=== PATIENT | male | born 1950 | race Caucasian/White ===

== ENCOUNTER → 2018-04-17 | Day surgery (SDC) | payer MEDICARE ==
[2018-04-13 08:29] VITALS: BMI 25.8
[~2018-04-17] MED LIST: ALPRAZolam 0.25 MG TAB PO PRN; ALPRAZolam 0.5 MG TAB PO PRN; ASPIRIN 325 MG TAB PO ONE; ATORVASTATIN 80 MG TAB PO ONE; HEPARIN SODIUM 1,000 UN/ML (10ML VL) IV ONE; HEPARIN SODIUM 1,000 UN/ML (10ML VL) ONE; IOPAMIDOL-370 100ML BTL INJ ONE; IOPAMIDOL-370 50ML BTL INJ ONE; LIDOCAINE 1% INJ 10MG/ML (20 ML MDV) ONE; LIDOCAINE 1% INJ 10MG/ML (20 ML MDV) SQ ONE; MIDAZOLAM 2 MG/2 ML VIAL ONE; NITROGLYCERIN SL TABS 0.4 MG TAB SUBLINGUAL PRN; RX INFO: IV CONTRAST WAS GIVEN 1 EACH MISC MISCELLANE PRN; SODIUM CHLORIDE 0.9% 1,000 ML IV SCH; SODIUM CHLORIDE 0.9% 1,000 ML in EMPTY BAG 1 BAG IV ONE; VERAPAMIL 2.5 MG/ML 2 ML AMP ONE; VERAPAMIL SYRINGE (5 MG/10 ML) IV ONE; diphenhydrAMINE 25 MG CAP PO ONE
[2018-04-17 10:12] VITALS: TEMP 98.2
[2018-04-17 10:47] LABS: Basophils % (A) 0 %; Eosinophils % (A) 1 %; HCT 41.3 % (39.0-53.0); HGB 14.1 gm/dL (13.0-17.5); Lymphocytes # (A) 0.9 k/uL (1.0-4.8); Lymphocytes % (A) 11 %; MCH 31.2 pg (25.0-35.0); MCHC 34.2 g/dL (31.0-37.0); MCV 91.2 fL (80.0-100.0); Mean Platelet Volume 8.6; Monocytes # (A) 0.3 k/uL (0-1.0); Monocytes % (A) 3 %; Neutrophils # (A) 7.5 k/uL (1.3-7.7); Neutrophils % (A) 85 %; Platelet Count 218 k/uL (150-450); RBC 4.53 m/uL (4.30-5.90); RDW 12.8 % (11.5-15.5); WBC 8.8 k/uL (3.8-10.6)
[2018-04-17 10:51] LABS: Anion Gap 8 mmol/L; Blood Urea Nitrogen 19 mg/dL (9-20); Calcium 9.8 mg/dL (8.4-10.2); Carbon Dioxide 25 mmol/L (22-30); Chloride 106 mmol/L (98-107); Glucose 107 mg/dL (74-99); Sodium 139 mmol/L (137-145)
[2018-04-17] MEDS: MIDAZOLAM 2 MG/2 ML VIAL IV ONE ×2 (11:54→12:03)
[2018-04-17 13:08] VITALS: RESP 16
--- NOTE | 2018-04-17 15:06 | CC ---
CARDIAC CATHETERIZATION REPORT DATE OF SERVICE: 04/17/2018 PROCEDURE: Left heart catheterization, coronary angiography and left ventriculography. PERFORMED BY: Dr. Nereida Parish. Moderate conscious sedation time was 29 minutes. Patient was administered Versed and also Benadryl. His oxygen saturation, EKG and hemodynamics were monitored closely. CLINICAL INFORMATION: Mr. Naveen Richardson is a 67-year-old gentleman with a known history of CAD who has multivessel PCI. He underwent stenting of circumflex in 2000 and following an acute inferior AL, underwent stenting of a totally occluded RCA in April 2005. Cardiac cath in 2006 revealed that his vessels were patent with noncritical disease. Because of an abnormal stress test with a large area of fixed defect with concomitant ischemia, he was advised coronary angiography after due discussion regarding risks, benefits, and options. This patient is fairly active and he does have some exertional chest tightness as well. PROCEDURE NOTE: Under local anesthesia and strict aseptic precautions, a 6-Yakut introducer was placed in the right femoral artery. Using a JL3.5 and JR4.0 catheters, I performed coronary angiography and a pigtail catheter was used to perform an LV-gram. The catheter and sheath were taken out and a TR band applied as per protocol. The patient was sent to the room in a stable condition. Saturation of the fingers of the right hand was 96%. CARDIAC CATHETERIZATION FINDINGS: The left ventricular end-diastolic pressure was 12 mmHg without any gradient across the aortic valve. CORONARY ANGIOGRAPHY FINDINGS: RIGHT CORONARY ARTERY: Technically, a very dominant vessel that has about a 35%-40% lesion in the midportion between the 2 stented areas. The stented areas are widely patent and beyond that, it bifurcates into a large PDA and PLV, both of which supply a sizable amount of myocardium. No significant disease in the RCA. The 35%-40% mid lesion between the stented segments is very similar to the previous study from 2006. LEFT MAIN CORONARY ARTERY: A long patent disease-free vessel that bifurcates into LAD and circumflex. LEFT ANTERIOR DESCENDING CORONARY ARTERY: Good caliber vessel extends along the anterior wall, gives off 2 good-sized diagonal branches. There is a lot of tortuosity in the proximal 1/3. At the junction of proximal and middle 1/3, there is a very eccentric 45%-50% lesion which I looked at in multiple projections and compared with the one from the previous in 2007 angiogram. There is no significant change. This is about a 45%-50% lesion, unchanged in a calcified area. Angiographically, it looks exactly the same were maybe a tad better when compared to 2007. Beyond this, the caliber of the vessel is good and supplies a sizable amount of myocardium in the LAD distribution. LEFT POSTERIOR CIRCUMFLEX CORONARY ARTERY: Technically, a nondominant vessel that has previous stenting in the midportion. The stented area has about a 40% narrowing with brisk flow. I do not see any significant lesion. Compared to the study from 2007, there is mild increase in the narrowing but overall it is not significant. It gives off a single obtuse marginal that runs laterally and divides into 2 branches, supplies a fair amount of myocardium. The circumflex therefore has mild 40% narrowing. No significant disease in the and is a nondominant vessel. LEFT VENTRICULOGRAM: This was performed in 30 degree ARCOS projection, revealed left ventricle which is of normal size with estimated ejection fraction of about 40%-45%. There is inferior wall hypokinesia mostly in the inferobasal and mid inferior wall. The inferior apical wall contracts better and the anterior wall demonstrates a good contractility. Ejection fraction is between 40% and 45% without mitral regurgitation. FINAL IMPRESSION: This patient has a right dominant system. The stented segment in the proximal and mid right coronary artery is widely patent with a 40% lesion being unchanged. The circumflex marginal was also stented, which is patent with a 40% lesion represents mild progression of disease compared to 2007. The left anterior descending artery has a 45%- 50%, mid lesion unchanged from before. Filling pressures are normal and ejection fraction is between 40% and 45% with inferior wall hypokinesia, unchanged from before. RECOMMENDATION: Findings were discussed with the patient. There was no family available, but I called and left a message for his friend on the phone. I expect he will be discharged later on today. We will pursue medical therapy with aggressive risk factor modification. Patient will be seen by me in the next 2 weeks in the office. MMDANNAL / LOIN: [id number] /
[2018-04-17 18:31] VITALS: BP 128/64; PULSE 66
== END ==
LOC: CATHCVL 09:27
PROVIDERS: ATTEND Internal Medicine Interventional Cardiology
DX: I25.10 Atherosclerotic heart disease of native coronary artery without angina pectoris (principal); R94.39 Abnormal result of other cardiovascular function study; Z95.5 Presence of coronary angioplasty implant and graft; I10 Essential (primary) hypertension; E78.5 Hyperlipidemia, unspecified; E78.00 Pure hypercholesterolemia, unspecified; I25.2 Old myocardial infarction; Z79.82 Long term (current) use of aspirin; Z79.899 Other long term (current) drug therapy; Z91.09 Other allergy status, other than to drugs and biological substances
CPT/HCPCS: 93458; 80048; 85025; C1894; J2250; J2001; J1644; Q9967 ×2

== ENCOUNTER → 2023-11-07 | Outpatient (CLI) | payer MEDICARE ==
[2023-11-07 10:15] LABS: African American GFR (CKD) >90 (>60 ml/min/1.73 sqM); Blood Urea Nitrogen 21 mg/dL (9-20); Non-African American GFR(CKD) 85 (>60 ml/min/1.73 sqM)
--- NOTE | 2023-11-07 10:59 | CT ---
EXAMINATION TYPE: CT abdomen pelvis wo/w con DATE OF EXAM: 11/07/2023 COMPARISON: NONE HISTORY: 73-year-old male R31.0, gross hematuria TECHNIQUE: Contiguous axial scanning of the abdomen and pelvis before and after administration of 100 ml Isovue 300 IV contrast. Delayed images through the kidneys and coronal/sagittal reconstructions performed. CT DLP: 1384.00 mGycm Automated exposure control for dose reduction was used. FINDINGS: Heart upper limits of normal in size without pericardial effusion. Myocardial calcification lateral w all left ventricle may reflect prior infarct. Clinically correlate. RCA coronary calcifications are v isualized. Tortuous lower thoracic aorta borderline ectatic and 2.5 cm. Additional scattered mild to moderate at herosclerotic changes throughout the abdominal aorta and common iliac arteries. Tiny hiatal hernia. No focal liver lesion or biliary ductal dilatation. Portal venous system is patent. Adrenal glands, spleen, and pancreas within normal limits. Bilateral renal cortical cysts measuring up to 3.9 cm on the left and 2.9 cm on the right. No nephrol ithiasis or hydronephrosis. Symmetric uptake and excretion of contrast from both kidneys. No suspicio us renal lesion. No dilated small bowel, free fluid, or free air. No mesenteric or retroperitoneal lymphadenopathy. Normal appendix. Mild stool burden. No pericolonic inflammatory change. Assessment of the pelvis is markedly limited due to extensive streak and beam Kitchen artifact relate d to the patient's bilateral total arthroplasties. Bladder incompletely distended. There is some type of calcification or metal density projecting at th e bladder lumen, estimated to measure 2.2 cm, coronal image 47 and axial image 67. The exact etiology is unclear. Detailed assessment of the bladder and prostate gland otherwise markedly limited. No pel marge lymphadenopathy or obvious abnormal fluid collection. Bones: Bilateral total hip orthoplasty. Vascular disease. Hypertrophic facet arthropathy mid to lower lumbar spine. 2.6 cm osseous density above the left hip possibly heterotopic ossification from previ ous surgery or partial avulsion of the gluteus medius. IMPRESSION: 1. MARKEDLY LIMITED ASSESSMENT OF THE PELVIS DUE TO EXTENSIVE METAL ARTIFACT FROM THE PATIENT'S HIP R EPLACEMENTS. THERE IS SOME TYPE OF CALCIFICATION OR METAL DENSITY PROJECTING AT THE BLADDER LUMEN EST IMATED TO MEASURE 2.2 CM. THE EXACT ETIOLOGY IS UNCLEAR. CONSIDER RADIOGRAPHIC ASSESSMENT. 2. BENIGN BILATERAL RENAL CORTICAL CYSTS MEASURING UP TO 3.9 CM. NO NEPHROLITHIASIS, HYDRONEPHROSIS, OR SUSPICIOUS RENAL MASS IS IDENTIFIED. 3. TINY HIATAL HERNIA. 4. THERE MAY BE SOME MYOCARDIAL CALCIFICATIONS ALONG THE LATERAL WALL OF THE LEFT VENTRICLE SUGGESTIN G PRIOR INFARCT. CLINICALLY CORRELATE.
== END | disposition home or self-care (01) ==
LOC: RADCTMAIN 09:45
PROVIDERS: ATTEND Urology
DX: N28.1 Cyst of kidney, acquired (principal); R31.0 Gross hematuria; K44.9 Diaphragmatic hernia without obstruction or gangrene; N32.89 Other specified disorders of bladder
CPT/HCPCS: 82565; 84520; 74178; 36415; Q9967